=== PATIENT | male | born 1950 | race Caucasian/White ===

== ENCOUNTER → 2018-02-01 | Day surgery (SDC) | payer MEDICARE, OTHER ==
[~2018-02-01] MED LIST: ACET325T11 PO; ACETAMINOPHEN 1000 MG/100 ML 100 ML IV ONE; ACETAMINOPHEN/HYDROcodone 325 MG/5 MG TAB ONE; BALANCED SALT SOLN OPHT IRRIG 15 ML BTL ONE; FINA5TAB77 PO; LACTATED RINGER'S 1000 ML INJ 1,000 ML ONE; LIDOCAINE 1%/EPINEPHrine 1:100,000 SOLN 30 ML VIAL ONE; LIDOCAINE 2%/EPINEPHrine PF 1:200,000 20ML SDV ONE; MIDAZOLAM HCL 2 MG/2 ML VIAL ONE; MILKSUS5 PO; ONDANSETRON HCL 4 MG/2 ML VIAL IV PUSH ONE; PERC5TAB12 PO; PROPOFOL 200 MG/20 ML AMP IV ONE; RANI150 PO; SERT-129 PO; TAMS0.4C67 PO; XARE10TA PO; ceFAZolin INJ 1,000 MG VIAL ONE
--- NOTE | 2018-02-01 11:37 | TN ---
cc: Jadon Alejandre MD DATE OF SURGERY: 02/01/2018 PREOPERATIVE DIAGNOSES: Facial aging. POSTOPERATIVE DIAGNOSES: Facial aging. PROCEDURE: Cervicofacial rhytidectomy. SURGEON: Jadon Alejandre MD FACS ANESTHESIA: LMA, general. ASSISTANTS: Lennie SMITH. COMPLICATIONS: None. DRAINS: None. PROCEDURE: The patient was brought into the operating room, consented, marked and anesthetized, skin sterilized with Microcyn, sterile draping applied. A total of 250 tumescent fluid was infiltrated into the face and neck. This was mixed with 330 mL of 1% lidocaine with epinephrine. Approach was done, started with a submental incision where we proceeded and dissected at the level of the platysma muscle, below the cricothyroid cartilage and extended laterally, at which time I proceeded and dissected in the retro-platysma level and the fat at that plane. I proceeded and also performed a vertical myotomy through which then I plicated the decussation of the platysmal muscle with 4-0 Mersilene in a running locking fashion. Inferior medial myotomies were done in order to the accentuate the cervicomental angle. Through the pre and postauricular incisions, I proceeded to perform and elevate the flap down to the base of the neck and encountering the medial dissection. With this, I proceeded to plicate the SMAS with 4-0 Mersilene suture in a running locking fashion and the lateral platysmaplasty took place. I proceeded to de-fat the platysma where needed under direct visualization. The contralateral side was approached in exactly the same manner. I proceeded then utilized ARTISS as tissue sealer. With that, I proceeded and performed the closure of the skin by debriding the loose skin in the pre and postauricular incisions as follows: Postauricular I utilized 3-0 Monocryl suture and surgical ernesto, in the preauricular I utilized 5-0 Monocryl suture and 5-0 fast-absorbing gut. In the submental incision excess skin was removed where needed as well as linear closure was done with 3-0 Monocryl suture in the dermis and subcu. Steri-Strips and Mastisol was performed thereafter. Overall, the patient tolerated the procedure well. He was awakened, extubated in the operating room. Absorbent compressive dressings were applied in the usual manner. No complication appreciated. Good viability of tissue was noted at the end of the case. The patient tolerated the procedure fairly well. MD YUDELKA Reeves/LEAH , 11:07 AM , 11:35 AM
== END | disposition home or self-care (01) ==
LOC: ESDC 06:23
PROVIDERS: ATTEND Plastic Surgery
DX: Z41.1 Encounter for cosmetic surgery (principal)
CPT/HCPCS: 00300; 15828; J0131; J0690; J2250; J2405; J3010; J7120